=== PATIENT | male | born 1950 | race Caucasian/White ===

== ENCOUNTER 2022-12-09 08:03 | Day surgery (SDC) | payer OTHER ==
[2022-12-01 14:21] VITALS: BMI 25.0
[2022-12-09] MEDS ORDERED: LIDOCAINE HCL/PF 2% SDV 5ML VIAL ONE (08:24)
[2022-12-09] MEDS ORDERED: PROPOFOL 160 ML ONE (08:24)
[2022-12-09 09:53] VITALS: PULSE 79; RESP 16; TEMP 96.9
[2022-12-09 10:14] VITALS: BP 103/56
== END 2022-12-09 10:15 | disposition home or self-care (01) ==
LOC: FASU-ENDO 08:03
PROVIDERS: ATTEND Internal Medicine Gastroenterology
PROC: 0DJD8ZZ Inspection of Lower Intestinal Tract, Via Natural or Artificial Opening Endoscopic (ICD-10-PCS; principal; 2022-12-09 09:22)
DX: Z12.11 Encounter for screening for malignant neoplasm of colon (principal); K64.1 Second degree hemorrhoids; K57.30 Diverticulosis of large intestine without perforation or abscess without bleeding
CPT/HCPCS: 82962